=== PATIENT | male | born 1975 | race African-American/Black ===

== ENCOUNTER 2017-04-09 07:41 | Emergency (ER) | payer BC ==
[~2017-04-09] VITALS: Ht 185.4 cm; Wt 91.2 kg
== END 2017-04-09 08:19 | disposition home or self-care (01) ==
LOC: CED 07:41 → CFTX 07:41
DX: T78.1XXA Other adverse food reactions, not elsewhere classified, initial encounter (principal); R22.0 Localized swelling, mass and lump, head; Z98.890 Other specified postprocedural states
CPT/HCPCS: 99283